=== PATIENT | male | born 1945 | race Caucasian/White ===

== ENCOUNTER 2018-05-28 17:06 | Inpatient (IN) | payer MEDICARE, BC ==
[~2018-05-28] VITALS: Ht 167.6 cm; Wt 86.2 kg
--- NOTE | 2018-05-28 18:25 | NUR ---
GPS RN ADMITTING NOTE: PT 72 Y/O MALE ADMITTED FROM [facility]. PT PLACED ON 5150 HOLD FOR DTS , PER HOLD PT PT HAS BEEN SERVED AN EVICTION NOTICE PT HAVING THOUGHTS OF OVERDOSING ON HIS LITHIUM,PT HAS HISTORY OF OVERDOSING. PT DEPRESSED. UPON FACE TO FACE EVALUATION PT A/OX 2-3 , UNSTEADY GAIT , FALL RISK , DENIES SI/HI AT THIS TIME , PT ADMITS HAVING SUICIDAL THOUGHTS BEFORE. SKIN CHECK DONE , PICTURE PLACED IN THE CARD, PT UNABLE TO SIGN PAPERS DUE TO SHAKINESS . DR MORENO NOTIFIED WITH STANDING ORDER, DINNER GIVEN TO PT, PT CALM, DEPRESSED MOOD. BELONGINGS CHECKED ,WILL INDORSE TO INCOMING SHIFT RN FOR COMPLETION AND CONTINUATION OF CARE
[2018-05-28] MEDS ORDERED: clonazePAM 0.5 MG TABLET PO PRN (18:30)
[2018-05-28] MEDS ORDERED: ACETAMINOPHEN 325 MG TABLET PO PRN (18:30)
[2018-05-28] MEDS ORDERED: MAGNESIUM HYDROXIDE 30 ML UDC PO PRN (18:30)
[2018-05-28] MEDS ORDERED: MAG HYDROX/AL HYDROX/SIMETH 30 ML UDC PO PRN (18:30)
[2018-05-28 18:37] VITALS: BP 121/73
[2018-05-28] MEDS ORDERED: Z GUARD REMEDY 2 OZ OINT TP PRN (19:00)
--- NOTE | 2018-05-28 19:30 | NUR ---
GPS RN NOTE, RECEIVED PATIENT AWAKE AND IN BED, NO S/S OR COMPLAINTS OF PAIN AT THIS TIME. PATIENT IS DISPLAYING NO S/S OF APPARENT DISTRESS AT THIS TIME. PATIENT BREATHING IS UNLABORED WITH EQUAL RISE AND FALL OF THE CHEST. PATIENT IS ALERT AND ORIENTED X 3 ON ROOM AIR WITH A SPO2 OF 98%. PATIENT IS MED COMPLIANT, CONFUSED AT TIMES, COOPERATIVE, DEPRESSED, ANXIOUS, DISORGANIZED, PARANOID, AND NEEDS REDIRECTION. PATIENT HAS A PATIENT DENIES SUICIDE IDEATIONS AND HOMICIDAL IDEATIONS AT THIS TIME. PATIENT ASSISTED WITH TURNING AND REPOSITIONING Q 2HRS AND PRN FOR COMFORT AND CIRCULATION. PATIENT HAS NO NEEDS AT THIS TIME. PATIENT EDUCATED ON THE USE OF THE CALL PALOMO. PATIENT BED SIDE RAILS UP X 2 FOR SAFETY, BED IS LOCKED, LOW, AND I WILL CONTINUE TO MONITOR AND MAINTAIN SAFETY Q15 MIN WITH THE HELP OF STAFF.
[2018-05-28] MEDS ORDERED: LEVO150T8 PO (19:58)
[2018-05-28] MEDS ORDERED: LITH300T3 PO (19:59)
[2018-05-28] MEDS ORDERED: ESCI20TA PO (20:00)
[2018-05-28] MEDS ORDERED: LOSA25TA27 PO (20:01)
[2018-05-28] MEDS ORDERED: LORA1TAB PO (20:01)
[2018-05-28] MEDS ORDERED: LAMO150T PO (20:02)
[2018-05-28] MEDS ORDERED: METF-440 PO (20:03)
[2018-05-28] MEDS ORDERED: ARIP5TAB10 PO (20:03)
[2018-05-28] MEDS ORDERED: SIMV20TA6 PO (20:04)
[2018-05-28 20:16] VITALS: BP 149/90
[2018-05-29] MEDS: TEMAZEPAM 7.5 MG CAPSULE PO PRN (02:40)
--- NOTE | 2018-05-29 02:40 | NUR ---
GPS RN NOTE, PATIENT HAS A COMPLAINT OF NOT BEING ABLE TO SLEEP AND IS REQUESTING RESTORIL AT THIS TIME. PATIENT VITAL SIGNS ARE STABLE. GAVE RESTORIL 7.5MG PO HS PRN ORDERED. WILL REASSESS FOR INSOMNIA AND I WILL CONTINUE TO MONITOR THIS PATIENT.
[2018-05-29 08:00] VITALS: BP 128/64
[2018-05-29] MEDS: METFORMIN 500 MG TABLET PO SCH ×2 (08:37→17:02)
[2018-05-29] MEDS: LEVOTHYROXINE SODIUM 75 MCG TABLET PO SCH (08:37)
[2018-05-29] MEDS: LOSARTAN POTASSIUM 25 MG TABLET PO SCH (08:37)
[2018-05-29 08:42] LABS: ALANINE AMINOTRANSFERASE 31 U/L (12-78); ALBUMIN 4.1 g/dL (3.4-5.0); ALKALINE PHOSPHATASE 113 U/L (46-116); ASPARTATE AMINOTRANSFERASE 22 U/L (15-37); BILIRUBIN,TOTAL 0.9 mg/dL (0.2-1.0); CALCIUM, SERUM 9.6 mg/dL (8.5-10.1); CARBON DIOXIDE 29 mmol/L (21-32); CHLORIDE 105 mmol/L (98-107); GLUCOSE 131 mg/dL (74-106); POTASSIUM 4.5 mmol/L (3.5-5.1); SODIUM SERUM 142 mmol/L (136-145); TOTAL PROTEIN, SERUM 7.8 g/dL (6.4-8.2); UREA NITROGEN, BLOOD 18 mg/dL (7-18)
[2018-05-29 08:47] LABS: CHOLESTEROL 127 mg/dL (<200); HDL CHOLESTEROL 59 mg/dL (40-60); LDL 59 mg/dL (0-99); TRIGLYCERIDES 100 mg/dL (30-150)
[2018-05-29] MEDS: ESCITALOPRAM OXALATE (10 MG) 10 MG TABLET PO SCH (13:20)
[2018-05-29] MEDS: ARIPIPRAZOLE 5 MG TABLET PO SCH (13:20)
[2018-05-29] MEDS: LamoTRIgine 100 MG TABLET PO SCH (13:20)
[2018-05-29] MEDS: LITHIUM CARBONATE 150 MG CAPSULE PO SCH ×2 (13:20→21:26)
[2018-05-29 16:16] VITALS: BP 125/59
[2018-05-29] MEDS: SIMVASTATIN 20 MG TABLET PO SCH (17:06)
[2018-05-29 20:24] VITALS: BP 129/73
[2018-05-30 08:00] VITALS: BP 145/65
--- NOTE | 2018-05-30 08:40 | NUR ---
SW received a call from pt's friend and DPOA, Tracey ([phone]), and MIKI informed her that the pt does not have a discharge date yet and that we will attempt to find placement for the pt.
[2018-05-30] MEDS: LEVOTHYROXINE SODIUM 75 MCG TABLET PO SCH (08:53)
[2018-05-30] MEDS: ARIPIPRAZOLE 5 MG TABLET PO SCH (09:07)
[2018-05-30] MEDS: LamoTRIgine 100 MG TABLET PO SCH (09:07)
[2018-05-30] MEDS: METFORMIN 500 MG TABLET PO SCH ×2 (09:08→17:34)
[2018-05-30] MEDS: ESCITALOPRAM OXALATE (10 MG) 10 MG TABLET PO SCH (09:08)
[2018-05-30] MEDS: LOSARTAN POTASSIUM 25 MG TABLET PO SCH (09:08)
[2018-05-30] MEDS: LITHIUM CARBONATE 150 MG CAPSULE PO SCH ×2 (09:09→21:52)
--- NOTE | 2018-05-30 13:50 | NUR ---
GROUP NOTE: Topic: Something you want to change: S: "I would like to change the stress in my life that is associated with my current housing situation." O: Pt had his eyes wide open and was talking loudly. A: Pt gained awareness of how his current housing situation has caused great stress in his life, stating, "coming here was a pleasant break." P: Pt will continue milieu treatment and medication stabilization.
[2018-05-30 16:00] VITALS: BP 110/68
[2018-05-30] MEDS: SIMVASTATIN 20 MG TABLET PO SCH (18:02)
[2018-05-30 19:37] VITALS: BP 115/74
[2018-05-31 08:00] VITALS: BP 121/75
[2018-05-31] MEDS: ESCITALOPRAM OXALATE (10 MG) 10 MG TABLET PO SCH (08:32)
[2018-05-31] MEDS: ARIPIPRAZOLE 5 MG TABLET PO SCH (08:33)
[2018-05-31] MEDS: LITHIUM CARBONATE 150 MG CAPSULE PO SCH ×2 (08:33→21:58)
[2018-05-31] MEDS: LEVOTHYROXINE SODIUM 75 MCG TABLET PO SCH (08:33)
[2018-05-31] MEDS: LamoTRIgine 100 MG TABLET PO SCH (08:33)
[2018-05-31] MEDS: METFORMIN 500 MG TABLET PO SCH ×2 (08:35→16:22)
[2018-05-31] MEDS: LOSARTAN POTASSIUM 25 MG TABLET PO SCH (08:37)
--- NOTE | 2018-05-31 09:57 | NUR ---
MIKI called the pt's friend and DPOA, Tracey ([phone]), and discussed the pt's current insurance plan and discharge options. The pt's DPOA stated that she is currently working on getting the pt on a medi-plan so that a custodial facility in the [facility] would be an option for the pt because his current living situation is temporary. She stated that he has a home (a unit attached to his landlord's home) and that they are evicting the pt by August 17. Pt's DPOA stated that she has a meeting with the insurance company on Monday and that she will call the SW and inform her about the results to see if we can start the process of getting the pt accepted into a custodial facility.
--- NOTE | 2018-05-31 11:36 | NUR ---
Initial Discharge Plan: Pt currently lives alone and resides at [address] [place] [address]; ([phone]). Pt was served with a 90 day eviction notice and has until August to vacate his home. Per pt, he would like to be placed in a senior care facility. MIKI will work with the pt, the DPOA ([phone]), and the MD regarding appropriate discharge planning. SW will form a safe and proper discharge.
[2018-05-31 16:00] VITALS: BP 100/74
[2018-05-31] MEDS: SIMVASTATIN 20 MG TABLET PO SCH (17:11)
[2018-05-31 20:00] VITALS: BP 101/66
[2018-05-31 20:39] VITALS: BP 101/66
[2018-05-31] MEDS: TEMAZEPAM 7.5 MG CAPSULE PO PRN (21:59)
[2018-06-01 08:00] VITALS: BP 122/81
[2018-06-01] MEDS: METFORMIN 500 MG TABLET PO SCH ×2 (08:05→16:28)
[2018-06-01] MEDS: LITHIUM CARBONATE 150 MG CAPSULE PO SCH ×2 (08:05→20:25)
[2018-06-01] MEDS: LEVOTHYROXINE SODIUM 75 MCG TABLET PO SCH (08:05)
[2018-06-01] MEDS: ESCITALOPRAM OXALATE (10 MG) 10 MG TABLET PO SCH (08:06)
[2018-06-01] MEDS: LOSARTAN POTASSIUM 25 MG TABLET PO SCH (08:06)
[2018-06-01] MEDS: LamoTRIgine 100 MG TABLET PO SCH (08:06)
[2018-06-01] MEDS: ARIPIPRAZOLE 5 MG TABLET PO SCH (08:10)
[2018-06-01 16:00] VITALS: BP 113/66
[2018-06-01] MEDS: SIMVASTATIN 20 MG TABLET PO SCH (17:22)
[2018-06-01 20:00] VITALS: BP 118/69
[2018-06-01] MEDS: TEMAZEPAM 7.5 MG CAPSULE PO PRN (20:25)
[2018-06-02 08:04] VITALS: BP 132/75
[2018-06-02] MEDS: ARIPIPRAZOLE 5 MG TABLET PO SCH (08:20)
[2018-06-02] MEDS: LamoTRIgine 100 MG TABLET PO SCH (08:20)
[2018-06-02] MEDS: LOSARTAN POTASSIUM 25 MG TABLET PO SCH (08:21)
[2018-06-02] MEDS: ESCITALOPRAM OXALATE (10 MG) 10 MG TABLET PO SCH (08:21)
[2018-06-02] MEDS: METFORMIN 500 MG TABLET PO SCH ×2 (08:21→16:39)
[2018-06-02] MEDS: LEVOTHYROXINE SODIUM 75 MCG TABLET PO SCH (08:21)
[2018-06-02] MEDS: LITHIUM CARBONATE 150 MG CAPSULE PO SCH ×2 (08:21→20:14)
[2018-06-02 17:06] VITALS: BP 101/53
[2018-06-02] MEDS: SIMVASTATIN 20 MG TABLET PO SCH (17:14)
--- NOTE | 2018-06-02 19:13 | NUR ---
RECEIVED AWAKE, ALERT, UP IN HIS ROOM, CALM, QUIET, NO APPARENT DISTRESS NOTED.
[2018-06-02 20:00] VITALS: BP 128/70
[2018-06-02] MEDS: TEMAZEPAM 7.5 MG CAPSULE PO PRN (20:14)
--- NOTE | 2018-06-02 20:16 | NUR ---
PATIENT GETTING READY TO BED, TEMAZEPAM 7.5 MG PO GIVEN.
[2018-06-03 07:52] VITALS: BP 118/74
[2018-06-03] MEDS: LEVOTHYROXINE SODIUM 75 MCG TABLET PO SCH (08:40)
[2018-06-03] MEDS: METFORMIN 500 MG TABLET PO SCH ×2 (08:40→16:47)
[2018-06-03] MEDS: LamoTRIgine 100 MG TABLET PO SCH (08:41)
[2018-06-03] MEDS: ARIPIPRAZOLE 5 MG TABLET PO SCH (08:42)
[2018-06-03] MEDS: LOSARTAN POTASSIUM 25 MG TABLET PO SCH (08:42)
[2018-06-03] MEDS: ESCITALOPRAM OXALATE (10 MG) 10 MG TABLET PO SCH (08:43)
[2018-06-03] MEDS: LITHIUM CARBONATE 150 MG CAPSULE PO SCH ×2 (08:47→20:45)
[2018-06-03 16:14] VITALS: BP 106/60
[2018-06-03] MEDS: SIMVASTATIN 20 MG TABLET PO SCH (16:47)
[2018-06-03 20:21] VITALS: BP 116/72
[2018-06-04 08:00] VITALS: BP 128/69
[2018-06-04] MEDS: LEVOTHYROXINE SODIUM 75 MCG TABLET PO SCH (08:20)
[2018-06-04] MEDS: ARIPIPRAZOLE 5 MG TABLET PO SCH (08:20)
[2018-06-04] MEDS: LOSARTAN POTASSIUM 25 MG TABLET PO SCH (08:21)
[2018-06-04] MEDS: LamoTRIgine 100 MG TABLET PO SCH (08:21)
[2018-06-04] MEDS: LITHIUM CARBONATE 150 MG CAPSULE PO SCH ×2 (08:21→21:23)
[2018-06-04] MEDS: ESCITALOPRAM OXALATE (10 MG) 10 MG TABLET PO SCH (08:22)
[2018-06-04] MEDS: METFORMIN 500 MG TABLET PO SCH ×2 (08:22→17:23)
--- NOTE | 2018-06-04 12:20 | NUR ---
UR Note: MIKI called [facility] ([phone]) and attempted to conduct a clinical review but was told that the pt has not been authorized and because the pt is being discharged the following day, a retroactive review will have to be done. MIKI received the fax number to conduct this review (F: [phone]) and will be sending it the following day.
--- NOTE | 2018-06-04 13:47 | NUR ---
MIKI called the pt's friend and DPOA, Tracey ([phone]), and attempted to leave a message but the mailbox was full.
--- NOTE | 2018-06-04 13:47 | NUR ---
MIKI called Iqra ([phone]) from the [facility] Department of Behavioral Wellness and left a voicemail for her requesting transportation services to be set up for the pt tomorrow.
--- NOTE | 2018-06-04 15:45 | NUR ---
MIKI called Rojelio ([phone]) from the [facility] Department of Behavioral Wellness and she stated that she is not in charge of transportation and the marble installer supervisor who is was not in today. She stated that she would have the investment banking manager the SW to arrange a service for the pt.
--- NOTE | 2018-06-04 15:49 | NUR ---
MIKI called Virginia ([phone]) from the [facility] Department of Behavioral Wellness and she stated that she would arrange the transportation for the pt tomorrow and call the SW back with a confirmation.
[2018-06-04 16:00] VITALS: BP 103/67
--- NOTE | 2018-06-04 16:03 | NUR ---
MIKI called the pt's friend and DPOA, Tracey ([phone]), and left her a voicemail stating that the pt is going to be discharged back home tomorrow and that he was not authorized for inpatient stay with his insurance this whole time.
--- NOTE | 2018-06-04 16:04 | NUR ---
Virginia ([phone]) from the [facility] Department of Behavioral Wellness called the SW back and informed her that the transportation was arranged and that his discharge will be at 4pm.
[2018-06-04] MEDS: SIMVASTATIN 20 MG TABLET PO SCH (17:23)
[2018-06-04 21:32] VITALS: BP 143/82
[2018-06-05 08:00] VITALS: BP 153/75
[2018-06-05] MEDS: ESCITALOPRAM OXALATE (10 MG) 10 MG TABLET PO SCH (08:30)
[2018-06-05 08:31] VITALS: BP 153/75
[2018-06-05] MEDS: LOSARTAN POTASSIUM 25 MG TABLET PO SCH (08:31)
[2018-06-05] MEDS: LamoTRIgine 100 MG TABLET PO SCH (08:31)
[2018-06-05] MEDS: LEVOTHYROXINE SODIUM 75 MCG TABLET PO SCH (08:31)
[2018-06-05] MEDS: METFORMIN 500 MG TABLET PO SCH (08:31)
[2018-06-05] MEDS: LITHIUM CARBONATE 150 MG CAPSULE PO SCH (08:32)
[2018-06-05] MEDS ORDERED: ARIPIPRAZOLE 5 MG TABLET PO SCH (09:00)
--- NOTE | 2018-06-05 11:40 | NUR ---
GPS CONSERVATION BIOLOGY PROFESSOR NOTES: PATIENT FOR DISCHARGE TO HOME LOCATED AT [address] [address] . PATIENT TO BE DISCHARGE WITH HOME HEALTH CARE, ORDER FROM CHRISTINE CEE NP NOTED. PATIENT IS ALERT AND ORIENTED X3.ABLE TO WALK AND CARE FOR HIS SELF. HE DENIES ANY SUICIDAL , THOUGHTS, PLANS, SI/HI THIS TIME. GIVEN PATIENT HIS DISCHARGE INSTRUCTIONS WELL HIS EXIT CARE INSTRUCTIONS. INFORMED PATIENT OF THE DAILY VISITS OF HIS HOME HEALTH NURSE. PATIENT WILL FOLLOW UP WITH HIS PSYCH DR. MEAGAN KHAN LOCATED AT [address], [address] TEL # , AND HIS MEDICAL DRSayda KHAN LOCATED AT [address], [place], [address] TEL #[phone]. PATIENT WAS BEING PICKED UP BY [facility].ARMBAND REMOVED. PATIENT WAS WHEELED TO THE VEHICLE BY VICKY CAGLE. PATIENT'S DPOA INFORMED OF THE DISCHARGE. PATIENT LEFT IN STABLE CONDITION.
--- NOTE | 2018-06-05 12:01 | NUR ---
MIKI called the pt's friend and DPOA, Tracey ([phone]), and informed her that the pt had to be discharged today due to the pt's secondary insurance not covering the parts that are not covered by his Medicare Part A and she stated that the pt's Medi-Rigoberto is currently pending so she will be looking into care home facilities for the pt. MIKI informed her that the pt's discharge is at 12pm and that he will be returning to his home. She stated that she would attempt to help him settle in and make sure that he is going to be fine until alternative placement can be found.
--- NOTE | 2018-06-05 12:03 | NUR ---
UR Note: MIKI faxed a retroactive review to [facility]LLY [facility] (attn: retro review) to the fax number: [phone].
--- NOTE | 2018-06-05 12:21 | NUR ---
MIKI connected the pt's friend and DPOA, Tracey ([phone]), to a placement agency called [facility] and specifically had Maurice reach out to her to help her find placement for the pt.
--- NOTE | 2018-06-05 15:20 | NUR ---
Discharge Note: Pt was discharged back home to [address] [place] [id number]; ([phone]). [facility] arranged [employer] to tile picker the pt at 12:00PM. Pts DPOA, Tracey ([phone]), was informed of the discharge. Upon discharge, the pt appeared to be in a euthymic mood with an anxious affect. He had stated that he was feeling anxious about returning to his home because he knows that he has to find another placement as soon as possible. Pt denied both suicidal and homicidal ideation as well as auditory and visual hallucinations. Pt will be under the care of his psychiatrist, Dr. Sunny Arnold, located at [address] [place] [address]; and his clay press operator, Dr. Lacho Youssef, located at [address], [place] [address]; .
== END 2018-06-05 11:30 | disposition home or self-care (01) | DRG 885 ==
LOC: GPS 17:06
PROVIDERS: ADMIT Psychiatry & Neurology Psychiatry; ATTEND Psychiatry & Neurology Psychiatry
DX: F31.30 Bipolar disorder, current episode depressed, mild or moderate severity, unspecified (principal); R45.851 Suicidal ideations; F23 Brief psychotic disorder; E03.9 Hypothyroidism, unspecified; E11.9 Type 2 diabetes mellitus without complications; E78.5 Hyperlipidemia, unspecified; F41.9 Anxiety disorder, unspecified; I10 Essential (primary) hypertension; Z59.0 Homelessness; Z79.84 Long term (current) use of oral hypoglycemic drugs
CPT/HCPCS: 36415; 80053-TC; 80061-TC; 87081-TC